=== PATIENT | female | born 1980 | race Caucasian/White ===

== ENCOUNTER 2017-04-12 09:33 | Emergency (ER) | payer OTHER ==
[~2017-04-12] VITALS: Ht 165.1 cm; Wt 77.1 kg
[2017-04-12] MEDS ORDERED: BACTRIM DS TAB1 EACH PO (09:41)
[2017-04-12] MEDS ORDERED: NOVOLOG100 UNIT/1 SUBQ (09:41)
[2017-04-12] MEDS ORDERED: SYNTHROID100 MCG PO (09:41)
[2017-04-12] MEDS ORDERED: DIPHENHIST50 MG PO (10:24)
[2017-04-12 10:54] VITALS: BP 130/66
== END 2017-04-12 10:55 | disposition home or self-care (01) ==
LOC: M.ERS 09:33
DX: T78.40XA Allergy, unspecified, initial encounter (principal); E07.9 Disorder of thyroid, unspecified; E10.8 Type 1 diabetes mellitus with unspecified complications; Z79.4 Long term (current) use of insulin; X58.XXXA Exposure to other specified factors, initial encounter

== ENCOUNTER 2020-04-22 15:44 | Emergency (ER) | payer OTHER ==
[~2020-04-22] VITALS: Ht 165.1 cm; Wt 77.1 kg
[~2020-04-22 15:44] MED LIST: BACTRIM DS TAB1 EACH PO; DIPHENHIST50 MG PO; NOVOLOG100 UNIT/1 SUBQ; SYNTHROID100 MCG PO
[2020-04-22] MEDS ORDERED: NORCO5 PO (17:02)
[2020-04-22] MEDS ORDERED: KEFLEX500 M1 PO (17:02)
[2020-04-22] MEDS ORDERED: IBUPROFEN 800800 M1 PO (17:02)
[2020-04-22 17:24] VITALS: BP 134/76
== END 2020-04-22 17:26 | disposition home or self-care (01) ==
LOC: M.ERS 15:44
DX: S61.011A Laceration without foreign body of right thumb without damage to nail, initial encounter (principal); E10.9 Type 1 diabetes mellitus without complications; Z79.4 Long term (current) use of insulin; Z87.440 Personal history of urinary (tract) infections; W26.8XXA Contact with other sharp object(s), not elsewhere classified, initial encounter; Y93.89 Activity, other specified; Y92.89 Other specified places as the place of occurrence of the external cause; Y99.8 Other external cause status